=== PATIENT | female | born 2000 | race Caucasian/White ===

== ENCOUNTER 2018-04-01 18:55 | Emergency (ER) | payer OTHER ==
--- NOTE | 2018-04-01 19:02 | ER Report ---
History and Physical Time Seen By MD: 18:58 HPI/ROS CHIEF COMPLAINT: Chest pain HISTORY OF PRESENT ILLNESS: This is a 17-year-old female who presents to the emergency department for chest pain. Patient states that she's had intermittent midsternal chest pain for roughly 3 weeks, progressively getting worse, more intense H time she has the chest pain. She states that today the pain began around 5:30 PM, has been constant since then. The pain does cause shortness of breath. She denies diaphoresis, no nausea or vomiting. No visual changes. She does take control pills, no recent travel. No fevers. Otherwise healthy. REVIEW OF SYSTEMS: Constitutional: No fever, no chills. Eyes: No discharge. ENT: No sore throat. Cardiovascular: As above. Respiratory: As above. Gastrointestinal: No abdominal pain, no vomiting. Genitourinary: No hematuria. Musculoskeletal: No back pain. Skin: No rashes. Neurological: No headache. Allergies: Coded Allergies: No Known Drug Allergies (Unverified , 04/01/18) Home Meds No Active Prescriptions or Reported Meds Past Medical/Surgical History The patient has no significant past medical or surgical history. Reviewed Nurses Notes: Yes Constitutional Vital Sign - Last 24 Hours 04/01/18 04/01/18 04/01/18 04/01/18 18:55 18:58 19:00 19:10 Temp 97.9 Pulse ??? 99 ??? Resp 14 B/P (MAP) 124/89 124/89 (101) Pulse Ox 90 O2 Delivery Room Air 04/01/18 04/01/18 04/01/18 19:25 19:40 19:55 Pulse 86 84 78 Pulse Ox 100 98 98 Physical Exam General Appearance: The patient is alert, has no immediate need for airway protection and no signs of toxicity. Eyes: Pupils equal and round no pallor or injection. ENT, Mouth: Mucous membranes are moist. Respiratory: There are no retractions, lungs are clear to auscultation. Cardiovascular: Regular rate and rhythm, no murmurs, clicks or rubs. Gastrointestinal: Abdomen is soft and non tender, no masses, bowel sounds normal. Neurological: Alert and oriented 4. Moving all extremities. Following all commands. No focal neuro deficits. Skin: Warm and dry, no rashes. Musculoskeletal: Neck is supple non tender. Extremities are nontender, nonswollen and have full range of motion. DIFFERENTIAL DIAGNOSIS: After history and physical exam differential diagnosis was considered for chest pain including but not limited to myocardial ischemia, pericarditis pulmonary embolus, chest wall pain, pleural inflammation and pulmonary infectious causes. Medical Decision Making Data Points Result Diagram: 04/01/18191104/01/181911 Laboratory Hematology Test 04/01/18 00:00 04/01/18 18:59 04/01/18 19:12 Lipase 128 U/L (23-300) Urine HCG, Qualitative Negative (NEGATIVE) Red Blood Count 5.30 M/uL (4.17-5.56) Mean Corpuscular Volume 82.7 fL (80.0-96.0) Mean Corpuscular Hemoglobin 28.4 pg (26.0-33.0) Mean Corpuscular Hemoglobin Concent 34.3 g/dL (32.0-36.0) Red Cell Distribution Width 13.2 % (11.5-14.5) Mean Platelet Volume 7.6 fL (7.2-11.1) Neutrophils (%) (Auto) 48.3 % (39.4-72.5) Lymphocytes (%) (Auto) 40.6 % (17.6-49.6) Monocytes (%) (Auto) 8.5 % (4.1-12.4) Eosinophils (%) (Auto) 2.1 % (0.4-6.7) Basophils (%) (Auto) 0.5 % (0.3-1.4) Nucleated RBC Relative Count (auto) 0.1 /100WBC Neutrophils # (Auto) 3.0 K/uL (2.0-7.4) Lymphocytes # (Auto) 2.5 K/uL (1.3-3.6) Monocytes # (Auto) 0.5 K/uL (0.3-1.0) Eosinophils # (Auto) 0.1 K/uL (0.0-0.5) Basophils # (Auto) 0.0 K/uL (0.0-0.1) Nucleated RBC Absolute Count (auto) 0.00 K/uL D-Dimer Quantitative (PE/DVT) 0.42 ug/ml (0-0.50) Sodium Level 138 mmol/L (137-145) Potassium Level 3.5 mmol/L (3.5-5.0) Chloride Level 100 mmol/L (98-107) Carbon Dioxide Level 24 mmol/L (22-31) Blood Urea Nitrogen 12 mg/dl (7-18) Creatinine 0.70 mg/dl (0.52-1.04) Glomerular Filtration Rate Calc > 60.0 Random Glucose 111 mg/dl (75-110) Calcium Level 9.5 mg/dl (8.4-10.2) Total Bilirubin 0.4 mg/dl (0.2-1.3) Aspartate Amino Transf (AST/SGOT) 85 U/L (0-35) Alanine Aminotransferase (ALT/SGPT) 115 U/L (0-56) Alkaline Phosphatase 149 U/L (0-126) Troponin I < 0.012 ng/ml Total Protein 7.9 g/dl (6.3-8.2) Albumin 4.2 g/dl (3.5-5.0) Chemistry Test 04/01/18 00:00 04/01/18 18:59 04/01/18 19:12 Lipase 128 U/L (23-300) Urine HCG, Qualitative Negative (NEGATIVE) White Blood Count 6.1 k/uL (4.5-11.0) Red Blood Count 5.30 M/uL (4.17-5.56) Hemoglobin 15.0 g/dL (12.0-16.0) Hematocrit 43.8 % (34.0-47.0) Mean Corpuscular Volume 82.7 fL (80.0-96.0) Mean Corpuscular Hemoglobin 28.4 pg (26.0-33.0) Mean Corpuscular Hemoglobin Concent 34.3 g/dL (32.0-36.0) Red Cell Distribution Width 13.2 % (11.5-14.5) Platelet Count 280 K/uL (150-450) Mean Platelet Volume 7.6 fL (7.2-11.1) Neutrophils (%) (Auto) 48.3 % (39.4-72.5) Lymphocytes (%) (Auto) 40.6 % (17.6-49.6) Monocytes (%) (Auto) 8.5 % (4.1-12.4) Eosinophils (%) (Auto) 2.1 % (0.4-6.7) Basophils (%) (Auto) 0.5 % (0.3-1.4) Nucleated RBC Relative Count (auto) 0.1 /100WBC Neutrophils # (Auto) 3.0 K/uL (2.0-7.4) Lymphocytes # (Auto) 2.5 K/uL (1.3-3.6) Monocytes # (Auto) 0.5 K/uL (0.3-1.0) Eosinophils # (Auto) 0.1 K/uL (0.0-0.5) Basophils # (Auto) 0.0 K/uL (0.0-0.1) Nucleated RBC Absolute Count (auto) 0.00 K/uL D-Dimer Quantitative (PE/DVT) 0.42 ug/ml (0-0.50) Glomerular Filtration Rate Calc > 60.0 Calcium Level 9.5 mg/dl (8.4-10.2) Total Bilirubin 0.4 mg/dl (0.2-1.3) Aspartate Amino Transf (AST/SGOT) 85 U/L (0-35) Alanine Aminotransferase (ALT/SGPT) 115 U/L (0-56) Alkaline Phosphatase 149 U/L (0-126) Troponin I < 0.012 ng/ml Total Protein 7.9 g/dl (6.3-8.2) Albumin 4.2 g/dl (3.5-5.0) Coagulation Test 04/01/18 19:12 D-Dimer Quantitative (PE/DVT) 0.42 ug/ml Urinalysis Test 04/01/18 18:59 Urine HCG, Qualitative Negative (NEGATIVE) EKG/Imaging EKG Interpretation 12 lead EKG: Time of EKG 1918. Rhythm: Normal sinus rhythm, ventricular rate 73 bpm. [place]: Right QRS: normal ST segments: No ST elevation or depression identified poor T-wave progression in V2, V3. Imaging Location: [facility] Patient: Leena Lawler : 2000 Visit/Account:[id number] Date of Sevice: 04/01/2018 Examination: CHEST PA AND LAT Comparison: None. History: Chest Pain Findings: No consolidation, nodule, or peribronchial inflammation. No pneumothorax, edema, or effusion. Cardiac and hilar contour size is normal. Osseous structures are intact. IMPRESSION: Negative chest. Report Dictated By: Marino Mckenzie MD at 04/01/2018 8:27 PM Report E-Signed By: Marino Mckenzie MD at 04/01/2018 8:29 PM WSN:[id number] ED Course/Re-evaluation Clinical Indication for ER IV: IV Access ED Course The patient was noted to room. History and physical were obtained. Differential diagnoses were considered. An IV was started. CBC, CMP, troponin and d-dimer were obtained. CBC unremarkable.AST 85, ALT 115, alkaline phosphatase 149, negative PE, negative troponin. Negative hCG. Patient was given 324 mg aspirin, GI cocktail which provided significant relief of her symptoms. I did review the laboratory studies with the patient as well as the negative two-view chest x- ray. I did tell patient that I feel that she has some gastric irritation not sure if this is secondary to ulcers therefore I did recommend following up with Dr. Greer at some point, as her AST and ALT were elevated I also recommended following up with [facility] in the next 1-2 weeks for reevaluation of her blood work. The patient expressed understanding and was discharged home. Patient was pain-free at the time of discharge. Decision to Disposition Date: Apr 01, 2018 Decision to Disposition Time: 20:50 Depart Departure Latest Vital Signs Vital Signs Date Time Temp Pulse Resp B/P (MAP) Pulse Ox O2 Delivery O2 Flow Rate FiO2 04/01/18 19:55 78 98 04/01/18 19:00 124/89 (101) 04/01/18 18:58 97.9 14 Room Air Impression: Primary Impression: Chest pain of unknown etiology Condition: Improved Disposition: HOME OR SELF-CARE Referrals: TELLY OLMSTEAD MD [facility] 1 Week New Scripts No Active Prescriptions or Reported Meds Patient Instructions: Chest Pain (ED) Additional Instructions: I believe the chest pain is from stomach irritation. I would recommend starting famotidine 20mg once a day for the next 14 days to see if this helps. Follow up with [facility] in 1-2 weeks for reevaluation of you elevated AST and ALT, liver enzymes. Follow up with Dr. Olmstead for evaluation and consultation for upper GI looking at the lining of your stomach. Drink plenty of water. Get plenty of rest. Return to the ED for any other concerns or worsening symptoms. NATIVIDAD LOMAX WIRE TRANSFER CLERK-BC Apr 01, 2018 19:02
[2018-04-01] MEDS ORDERED: LIDOCAINE 2% VISC SLN 15ML UDC PO ONE (19:15)
[2018-04-01] MEDS ORDERED: MAG HYD/AL HYD/SIMETH 30ML UDC PO ONE (19:15)
[2018-04-01] MEDS ORDERED: ASPIRIN 81 MG CHEW PO ONE (19:15)
[2018-04-01 19:22] LABS: PLATELET COUNT, AUTOMATED 280 K/uL (150-450)
--- NOTE | 2018-04-01 20:33 | RADIOLOGY IMAGING REPORT ---
FACILITY: [facility] - [place] PATIENT NAME: Leena Lawler : 2000 MR: [id number] V: [id number] EXAM DATE: ORDERING PHYSICIAN: NATIVIDAD LOMAX TECHNOLOGIST: Location[place] [facility] [place] Patient: Leena Lawler : 2000 Visit/Account:[id number] Date of Sevice: 04/01/2018 Examination: CHEST PA AND LAT Comparison: None. History: Chest Pain Findings: No consolidation, nodule, or peribronchial inflammation. No pneumothorax, edema, or effusio n. Cardiac and hilar contour size is normal. Osseous structures are intact. IMPRESSION: Negative chest. Report Dictated By: Marino Mckenzie MD at 04/01/2018 8:27 PM Report E-Signed By: Marino Mckenzie MD at 04/01/2018 8:29 PM WSN:[id number]
[2018-04-01 20:56] VITALS: BP 98/70
--- NOTE | 2018-04-01 21:53 | EKG ---
FACILITY: [facility] - [place] PATIENT NAME: OCTAVIO PEREZ : [id number] MR: [id number] V: [id number] EXAM DATE: ORDERING PHYSICIAN: NATIVIDAD LOMAX TECHNOLOGIST: JOSIE Test Reason : CHEST PAIN Blood Pressure : / mmHG Vent. Rate : 073 BPM Atrial Rate : 073 BPM P-R Int : 132 ms QRS Dur : 088 ms QT Int : 398 ms P-R-T Axes : 057 094 048 degrees QTc Int : 438 ms Normal sinus rhythm Rightward axis Borderline ECG No previous ECGs available Confirmed by Jaime Jaimes ([id number]) on 04/02/2018 6:18:59 AM Referred By: Confirmed By:Jaime Ferro
== END 2018-04-01 21:03 | disposition home or self-care (01) ==
LOC: ER 19:12
DX: R07.9 Chest pain, unspecified (principal)
CPT/HCPCS: 71046; 81025; 82040; 82247; 82310; 82374; 82435; 82565; 82947; 83690; 84075; 84132; 84155; 84295; 84450; 84460; 84484; 84520; 85025; 85379; 93005; 99283